=== PATIENT | female | born 1925 | race Native Hawaiian/Other Pacific Islander ===

== ENCOUNTER 2017-01-16 12:56 | Emergency (ER) | payer MEDICARE ==
[2017-01-16 13:06] VITALS: O2SAT 97
--- NOTE | 2017-01-16 13:32 | ERPHSYRPT ---
- History of Present Illness Time Seen by Provider: 01/16/17 13:24 Historian: patient Exam Limitations: no limitations (out of a chest pain) Patient Subjective Stated Complaint: PT REPORTS INTERMITTANT CHEST PAIN- SHOULDER PAIN-BEGINNING SUNDAY-STATES THAT THE PAIN COMES ET GOES ET THAT IT MOVES AROUND BOTH SHOULDERS ET THROUGH HER CHEST-DENIES SOB-DENIES COUGH-DENIES RECENT ILLNESS-STATES THAT SHE HAS THESE EPISODES ABOUT ONCE A YEAR Triage Nursing Assessment: PT PALE WARM ET [id number] NONLAOBRED-RIGHT RADIAL PULSE REGULAR ET STRONG-CAP REFILL 3 SECONDS-SPEAKING IN COMPLETE SENTENCES WITH EASE- Physician History: left wrist pain for one week. Timing/Duration: week(s) (1) Activities at Onset: none Quality: sharpness Severity of Pain-Max: moderate Severity of Pain-Current: moderate Modifying Factors: Improves With: nothing Associated Symptoms: denies symptoms Prior Chest Pain/Cardiac Workup: no prior chest pain Nitro Today/Relief: no nitro taken today Aspirin Treatment Today: no aspirin today Allergies/Adverse Reactions: cortisone Allergy (Verified 02/02/17 12:49) Home Medications: Aspirin 81 gm Chew [Baby Aspirin 81 mg Chew] 81 mg PO DAILY 01/16/17 [ History] Carvedilol 6.25 mg [Coreg 6.25 MG] 6.25 mg PO BID 01/16/17 [History] Hydrochlorothiazide 25 mg [hydroDIURIL 25 MG] 25 mg PO DAILY 01/16/17 [ History] PANTOPRAZOLE 40 mg Tablet [Protonix 40MG Tablet] 40 mg PO BID 01/16/17 [ History] Amlodipine Besylate 2.5 mg PO UD 02/02/17 [History] Lisinopril [Prinivil] 20 mg PO BID 02/02/17 [History] Hx Tetanus, Diphtheria Vaccination/Date Given: No Hx Influenza Vaccination/Date Given: No Hx Pneumococcal Vaccination/Date Given: No Immunizations Up to Date: Yes - Review of Systems Constitutional: No Fever, No Chills Eyes: No Symptoms Ears, Nose, & Throat: No Symptoms Respiratory: No Cough, No Dyspnea Cardiac: No Chest Pain, No Edema, No Syncope Genitourinary Symptoms: No Dysuria Musculoskeletal: Joint Pain (left wrist) Skin: No Rash Neurological: No Dizziness, No Focal Weakness, No Sensory Changes Psychological: No Symptoms Endocrine: No Symptoms Hematologic/Lymphatic: No Symptoms Immunological/Allergic: No Symptoms All Other Systems: Reviewed and Negative - Past Medical History Pertinent Past Medical History: Yes Cardiac History: Myocardial Infarction ([place]) - Past Surgical History Past Surgical History: Yes Cardiac: Cardiac Catheterization, Cardiac Stent Female Surgical History: Hysterectomy - Social History Smoking Status: Never smoker Exposure to second hand smoke: No Drug Use: none Patient Lives Alone: No - Nursing Vital Signs Nursing Vital Signs: Initial Vital Signs Temperature 99.1 F 01/16/17 12:57 Pulse Rate 96 H 01/16/17 12:57 Respiratory Rate 20 01/16/17 12:57 Blood Pressure 146/70 01/16/17 12:57 O2 Sat by Pulse Oximetry 97 01/16/17 12:57 Pain Scale Pain Intensity 4 - Physical Exam General Appearance: mild distress Eye Exam: PERRL/EOMI, eyes nml inspection Ears, Nose, Throat Exam: normal ENT inspection, moist mucous membranes Neck Exam: normal inspection, non-tender, supple, full range of motion Respiratory Exam: normal breath sounds, lungs clear, No respiratory distress Cardiovascular Exam: regular rate/rhythm, normal heart sounds Gastrointestinal/Abdomen Exam: soft, No tenderness, No mass Pelvic Exam: not done Rectal Exam: not done Back Exam: normal inspection, No CVA tenderness, No vertebral tenderness Extremity Exam: normal range of motion, swelling (left wrist) Neurologic Exam: alert, oriented x 3, cooperative, normal mood/affect, sensation nml, No motor deficits Skin Exam: normal color, warm, dry SpO2 Interpretation: normal SpO2: 97 Oxygen Delivery: Room Air Ordered Tests: Medication Summary Discontinued Medications Generic Name Dose Route Start Last Admin Trade Name Jovan PRN Reason Stop Dose Admin Acetaminophen 975 mg 01/16/17 13:39 01/16/17 13:46 Tylenol 325 Mg PO 01/16/17 13:40 975 mg STAT ONE Administration Acetaminophen Confirm 01/16/17 13:44 Tylenol 325 Mg Administered 01/16/17 13:45 Dose 975 mg .ROUTE .STK-MED ONE Potassium Chloride 20 meq 01/16/17 14:38 01/16/17 14:42 Klor Con 10 Meq PO 01/16/17 14:39 20 meq STAT ONE Administration Potassium Chloride Confirm 01/16/17 14:39 Klor Con 10 Meq Administered 01/16/17 14:40 Dose 20 meq PO .STK-MED ONE Lab/Rad Data: Laboratory Result Diagrams 01/16/17 13:30 01/16/17 13:30 Laboratory Results 01/16/17 01/16/17 01/16/17 Range/Units 13:39 13:30 13:30 WBC (4.0-10.5) K/mm3 RBC (4.1-5.4) M/mm3 Hgb (12.0-16.0) gm/dl Hct (35-47) % MCV (78-100) fl MCH (26-32) pg MCHC (32-36) g/dl RDW (11.5-14.0) % Plt Count (150-450) K/mm3 MPV (6-9.5) fl Gran % (36.0-66.0) % Lymphocytes % (24.0-44.0) % Monocytes % (0.0-12.0) % Eosinophils % (0.00-5.0) % Basophils % (0.0-0.4) % Basophils # (0-0.4) Sodium 141 (136-145) mEq/L Potassium 3.2 L (3.5-5.1) mEq/L Chloride 103 (98-107) mEq/L Carbon Dioxide 27.2 (21-32) mEq/L Anion Gap 14.1 (5-15) MEQ/L BUN 21 H (9-20) mg/dL Creatinine 1.28 (0.55-1.30) mg/dl Estimated GFR 42 ML/MIN Glucose 203 H (70-110) MG/DL Lactic Acid 1.5 (0.4-2.0) Uric Acid 7.8 H (2.6-6.0) mg/dL Calcium 9.2 (8.5-10.1) mg/dL Total Bilirubin 1.20 H (0.2-1.0) mg/dL AST 20 (15-37) U/L ALT 17 (12-78) U/L Alkaline Phosphatase 105 (46-116) U/L Troponin I < 0.017 (0.000-0.056) ng/ml Serum Total Protein 7.6 (6.4-8.2) gm/dL Albumin 3.7 (3.4-5.0) g/dL 01/16/17 Range/Units 13:30 WBC 11.2 H (4.0-10.5) K/mm3 RBC 3.97 L (4.1-5.4) M/mm3 Hgb 10.9 L (12.0-16.0) gm/dl Hct 34.1 L (35-47) % MCV 85.9 (78-100) fl MCH 27.4 (26-32) pg MCHC 32.0 (32-36) g/dl RDW 13.8 (11.5-14.0) % Plt Count 340 (150-450) K/mm3 MPV 11.1 H (6-9.5) fl Gran % 80.7 H (36.0-66.0) % Lymphocytes % 9.5 L (24.0-44.0) % Monocytes % 9.4 (0.0-12.0) % Eosinophils % 0.2 (0.00-5.0) % Basophils % 0.2 (0.0-0.4) % Basophils # 0.02 (0-0.4) Sodium (136-145) mEq/L Potassium (3.5-5.1) mEq/L Chloride (98-107) mEq/L Carbon Dioxide (21-32) mEq/L Anion Gap (5-15) MEQ/L BUN (9-20) mg/dL Creatinine (0.55-1.30) mg/dl Estimated GFR ML/MIN Glucose (70-110) MG/DL Lactic Acid (0.4-2.0) Uric Acid (2.6-6.0) mg/dL Calcium (8.5-10.1) mg/dL Total Bilirubin (0.2-1.0) mg/dL AST (15-37) U/L ALT (12-78) U/L Alkaline Phosphatase (46-116) U/L Troponin I (0.000-0.056) ng/ml Serum Total Protein (6.4-8.2) gm/dL Albumin (3.4-5.0) g/dL - Progress Counseled pt/family regarding: lab results, diagnosis, need for follow-up - Departure Time of Disposition: 14:57 Departure Disposition: Home Clinical Impression: Acute gouty arthritis, Hypokalemia Condition: Stable Critical Care Time: No Referrals: MAKSIM BURRELL [Primary Care Provider] - Additional Instructions: Your laboratory value showed your uric acid level was high at 7.8. Your left wrist pain and swelling is likely due to gout. Your potassium level was also slightly low. You were given potassium 20 mEq in the ER. Take Augmentin 875 twice a day for 10 days. Take Aleve or ibuprofen as needed for pain. Stay well hydrated. Do not eat any red meat until well. Follow-up with your family physician in 2-3 days.
--- NOTE | 2017-01-16 13:38 | ERPHSYRPT ---
- History of Present Illness Time Seen by Provider: 01/16/17 13:33 Source: patient, family Exam Limitations: no limitations Patient Subjective Stated Complaint: PT REPORTS INTERMITTANT CHEST PAIN- SHOULDER PAIN-BEGINNING SUNDAY-STATES THAT THE PAIN COMES ET GOES ET THAT IT MOVES AROUND BOTH SHOULDERS ET THROUGH HER CHEST-DENIES SOB-DENIES COUGH-DENIES RECENT ILLNESS-STATES THAT SHE HAS THESE EPISODES ABOUT ONCE A YEAR Triage Nursing Assessment: PT PALE WARM ET [id number] NONLAOBRED-RIGHT RADIAL PULSE REGULAR ET STRONG-CAP REFILL 3 SECONDS-SPEAKING IN COMPLETE SENTENCES WITH EASE- Physician History: The patient is an 89-year-old female with her daughter complaining of left wrist pain since Sunday. She is somewhat of a poor historian. She states she will get pains in her arms and legs. These pains will last about one week. These pains will occur about once a year. Currently the pain is only in her left wrist. The last time she had these pains it was in her legs and ankles. In the past she hasn't done anything but ride out the problem and it would get better. This time the pain is much worse. Her past medical history is significant for OR, congestive heart failure, hypertension, and GERD. She is right-handed. Occurred: days ago (3) Method of Injury: unknown Quality: constant, sharpness Severity of Pain-Max: severe Severity of Pain-Current: moderate Extremities Pain Location: wrist: left Modifying Factors: Improves With: nothing Associated Symptoms: none, No chest pain, No dyspnea, No short of breath Allergies/Adverse Reactions: No Known Drug Allergies Allergy (Unverified 01/16/17 13:43) Home Medications: Amlodipine/Atorvastatin [Amlodipine-Atorvast 2.5-10 mg] 1 each PO BID 01/16/17 [ History] Aspirin 81 gm Chew [Baby Aspirin 81 mg Chew] 81 mg PO DAILY 01/16/17 [ History] Carvedilol 6.25 mg [Coreg 6.25 MG] 6.25 mg PO BID 01/16/17 [History] Hydrochlorothiazide 25 mg [hydroDIURIL 25 MG] 25 mg PO DAILY 01/16/17 [ History] PANTOPRAZOLE 40 mg Tablet [Protonix 40MG Tablet] 40 mg PO BID 01/16/17 [ History] Hx Tetanus, Diphtheria Vaccination/Date Given: No Hx Influenza Vaccination/Date Given: No Hx Pneumococcal Vaccination/Date Given: No Immunizations Up to Date: Yes - Review of Systems Constitutional: No Fever, No Chills Eyes: No Symptoms Ears, Nose, & Throat: No Symptoms Respiratory: No Cough, No Dyspnea Cardiac: No Chest Pain, No Edema, No Syncope Abdominal/Gastrointestinal: No Abdominal Pain, No Nausea, No Vomiting, No Diarrhea Genitourinary Symptoms: No Symptoms Musculoskeletal: Joint Pain (left wrist) Skin: No Rash Neurological: No Dizziness, No Focal Weakness, No Sensory Changes Psychological: No Symptoms Endocrine: No Symptoms Hematologic/Lymphatic: No Symptoms Immunological/Allergic: No Symptoms All Other Systems: Reviewed and Negative - Past Medical History Pertinent Past Medical History: Yes Cardiac History: Myocardial Infarction ([place]) - Past Surgical History Past Surgical History: Yes Cardiac: Cardiac Catheterization, Cardiac Stent Female Surgical History: Hysterectomy - Social History Smoking Status: Never smoker Exposure to second hand smoke: No Drug Use: none Patient Lives Alone: No - Nursing Vital Signs Nursing Vital Signs: Initial Vital Signs Temperature 99.1 F Temperature Source Oral Pulse Rate [Right Radial] 90 Pulse Rate 72 Respiratory Rate 16 Blood Pressure [Right Arm] 129/66 Pain Intensity 4 - Physical Exam General Appearance: alert Eyes, Ears, Nose, Throat Exam: moist mucous membranes Neck Exam: non-tender, supple Cardiovascular/Respiratory Exam: chest non-tender, normal breath sounds, regular rate/rhythm, no respiratory distress Abdominal Exam: non-tender, No guarding Back Exam: normal inspection, No vertebral tenderness Shoulder Exam: normal inspection Elbow/Forearm Exam: normal inspection Wrist Exam: limited ROM, pain, soft tissue tenderness, swelling (Swelling, erythema, exquisite tenderness to palpation, and limited range of motion due to pain.) Hand Exam: normal inspection Neuro/Tendon Exam: normal sensation, normal motor functions Mental Status Exam: alert, oriented x 3, cooperative Skin Exam: normal color, warm, dry SpO2 Interpretation: normal SpO2: 97 Oxygen Delivery: Room Air Ordered Tests: Active Orders 24 hr Category Date Time Status WRIST (MIN 3 VIEWS) Stat Exams 01/16/17 13:41 Taken CBC W DIFF Stat Lab 01/16/17 13:30 Completed CMP Stat Lab 01/16/17 13:30 Completed Lactic Acid Stat Lab 01/16/17 13:39 Completed TROPONIN Stat Lab 01/16/17 13:30 Completed Uric Acid Stat Lab 01/16/17 13:30 Completed Medication Summary Discontinued Medications Generic Name Dose Route Start Last Admin Trade Name Jovan PRN Reason Stop Dose Admin Acetaminophen 975 mg 01/16/17 13:39 01/16/17 13:46 Tylenol 325 Mg PO 01/16/17 13:40 975 mg STAT ONE Administration Acetaminophen Confirm 01/16/17 13:44 Tylenol 325 Mg Administered 01/16/17 13:45 Dose 975 mg .ROUTE .STK-MED ONE Potassium Chloride 20 meq 01/16/17 14:38 Klor Con 10 Meq PO 01/16/17 14:39 STAT ONE Lab/Rad Data: Laboratory Result Diagrams 01/16/17 13:30 01/16/17 13:30 Laboratory Results 01/16/17 01/16/17 01/16/17 Range/Units 13:39 13:30 13:30 WBC (4.0-10.5) K/mm3 RBC (4.1-5.4) M/mm3 Hgb (12.0-16.0) gm/dl Hct (35-47) % MCV (78-100) fl MCH (26-32) pg MCHC (32-36) g/dl RDW (11.5-14.0) % Plt Count (150-450) K/mm3 MPV (6-9.5) fl Gran % (36.0-66.0) % Lymphocytes % (24.0-44.0) % Monocytes % (0.0-12.0) % Eosinophils % (0.00-5.0) % Basophils % (0.0-0.4) % Basophils # (0-0.4) Sodium 141 (136-145) mEq/L Potassium 3.2 L (3.5-5.1) mEq/L Chloride 103 (98-107) mEq/L Carbon Dioxide 27.2 (21-32) mEq/L Anion Gap 14.1 (5-15) MEQ/L BUN 21 H (9-20) mg/dL Creatinine 1.28 (0.55-1.30) mg/dl Estimated GFR 42 ML/MIN Glucose 203 H (70-110) MG/DL Lactic Acid 1.5 (0.4-2.0) Uric Acid 7.8 H (2.6-6.0) mg/dL Calcium 9.2 (8.5-10.1) mg/dL Total Bilirubin 1.20 H (0.2-1.0) mg/dL AST 20 (15-37) U/L ALT 17 (12-78) U/L Alkaline Phosphatase 105 (46-116) U/L Troponin I < 0.017 (0.000-0.056) ng/ml Serum Total Protein 7.6 (6.4-8.2) gm/dL Albumin 3.7 (3.4-5.0) g/dL 01/16/17 Range/Units 13:30 WBC 11.2 H (4.0-10.5) K/mm3 RBC 3.97 L (4.1-5.4) M/mm3 Hgb 10.9 L (12.0-16.0) gm/dl Hct 34.1 L (35-47) % MCV 85.9 (78-100) fl MCH 27.4 (26-32) pg MCHC 32.0 (32-36) g/dl RDW 13.8 (11.5-14.0) % Plt Count 340 (150-450) K/mm3 MPV 11.1 H (6-9.5) fl Gran % 80.7 H (36.0-66.0) % Lymphocytes % 9.5 L (24.0-44.0) % Monocytes % 9.4 (0.0-12.0) % Eosinophils % 0.2 (0.00-5.0) % Basophils % 0.2 (0.0-0.4) % Basophils # 0.02 (0-0.4) Sodium (136-145) mEq/L Potassium (3.5-5.1) mEq/L Chloride (98-107) mEq/L Carbon Dioxide (21-32) mEq/L Anion Gap (5-15) MEQ/L BUN (9-20) mg/dL Creatinine (0.55-1.30) mg/dl Estimated GFR ML/MIN Glucose (70-110) MG/DL Lactic Acid (0.4-2.0) Uric Acid (2.6-6.0) mg/dL Calcium (8.5-10.1) mg/dL Total Bilirubin (0.2-1.0) mg/dL AST (15-37) U/L ALT (12-78) U/L Alkaline Phosphatase (46-116) U/L Troponin I (0.000-0.056) ng/ml Serum Total Protein (6.4-8.2) gm/dL Albumin (3.4-5.0) g/dL - Departure Time of Disposition: 14:40 Departure Disposition: Home Clinical Impression: Acute gouty arthritis, Hypokalemia Condition: Stable Critical Care Time: No Additional Instructions: Your laboratory value showed your uric acid level was high at 7.8. Your left wrist pain and swelling is likely due to gout. Your potassium level was also slightly low. You were given potassium 20 mEq in the ER. Take Augmentin 875 twice a day for 10 days. Take Aleve or ibuprofen as needed for pain. Stay well hydrated. Do not eat any red meat until well. Follow-up with your family physician in 2-3 days. Prescriptions: Amoxicillin/Potassium Clav [Augmentin 875-125 Tablet] 875 mg PO BID #20 tablet
[2017-01-16] MEDS ORDERED: TYLENOL 325 MG PO ONE (13:39)
[2017-01-16] MEDS ORDERED: TYLENOL 325 MG ONE (13:44)
[2017-01-16 13:55] LABS: BASOPHIL % 0.2 % (0.0-0.4); Eosinophil % 0.2 % (0.00-5.0); Granulocytes % 80.7 % (36.0-66.0); Lymphocytes % 9.5 % (24.0-44.0); Mean Cell Volume 85.9 fl (78-100); Mean Platelet Volume 11.1 fl (6-9.5); Monocytes % 9.4 % (0.0-12.0); Platelet Count 340 K/mm3 (150-450); Red Blood Count 3.97 M/mm3 (4.1-5.4); Red Cell Distribution Width 13.8 % (11.5-14.0); White Blood Count 11.2 K/mm3 (4.0-10.5)
[2017-01-16 13:58] LABS: Mean Corpuscular Hemoglobin 27.4 pg (26-32)
[2017-01-16 14:03] LABS: ALBUMIN 3.7 g/dL (3.4-5.0); ALKALINE PHOSPHATASE 105 U/L (46-116); ANION GAP 14.1 MEQ/L (5-15); BLOOD UREA NITROGEN 21 mg/dL (9-20); CHLORIDE 103 mEq/L (98-107); Carbon Dioxide 27.2 mEq/L (21-32); Glucose 203 MG/DL (70-110); Potassium 3.2 mEq/L (3.5-5.1); SGOT/AST 20 U/L (15-37); SODIUM 141 mEq/L (136-145); Total Protein 7.6 gm/dL (6.4-8.2)
[2017-01-16 14:14] LABS: TROPONIN < 0.017 ng/ml (0.000-0.056)
[2017-01-16 14:21] LABS: SGPT/ALT 17 U/L (12-78)
[2017-01-16] MEDS ORDERED: Klor Con 10 MEQ PO ONE ×2 (14:38→14:39)
--- NOTE | 2017-01-16 14:51 | XRAY ---
Exam: 3 view left wrist series from 01/16/2017. Comparison: None. Indication: No known injury, pain and swelling within left wrist. Findings: AP, oblique, and lateral radiographs of the left wrist were obtained. I see no acute fracture or dislocation. The radiocarpal joint and carpal joint spaces appear grossly unremarkable. The carpal bones appear intact. Surprisingly little degenerative change is seen at the carpal-first metacarpal joint space despite the patient's age of almost 89 years. Some mild atherosclerotic vascular calcification is seen along the volar aspect of the distal left forearm and wrist. I also note mild to moderate generalized soft tissue swelling about the distal left forearm and wrist. No radiopaque soft tissue foreign body is seen. Impression: 1. I see no fracture or other significant bone or joint abnormality about the left wrist. 2. Mild atherosclerotic vascular calcification is seen along the volar aspect of the distal left forearm and wrist. 3. There is mild to moderate generalized soft tissue swelling about the distal left forearm and wrist. Correlate clinically. No radiopaque soft tissue foreign body is seen.
[2017-01-16 14:54] VITALS: BP 127/58; PULSE 68
== END 2017-01-16 14:57 | disposition home or self-care (01) ==
LOC: ED 12:56
DX: M10.9 Gout, unspecified (principal); E87.6 Hypokalemia; R07.89 Other chest pain; M25.512 Pain in left shoulder; M25.511 Pain in right shoulder; Z79.899 Other long term (current) drug therapy; M25.532 Pain in left wrist; I25.2 Old myocardial infarction
CPT/HCPCS: 36000; 36415; 73110; 80053; 83605; 84484; 84550; 85025; 93005; 93041; 99284; A9270-GY

== ENCOUNTER 2017-02-02 12:33 | Emergency (ER) | payer MEDICARE ==
[2017-02-02 12:49] VITALS: O2SAT 93
--- NOTE | 2017-02-02 12:53 | ERPHSYRPT ---
- History of Present Illness Time Seen by Provider: 02/02/17 12:49 Historian: patient Exam Limitations: no limitations Patient Subjective Stated Complaint: diarrhea Triage Nursing Assessment: diarrhea 5+ times daily for past 4 days. states diarreha started after having tomatoes 4 days ago. deneis pain or n/v. abd soft , nontender. states 'has this for years but 4 days is a long time' Physician History: 89 y/o female with history of having diarrhea comes to the ER after having a bout of diarrhea for the past 4 days. Pt says she has about 4-5 episodes of diarrhea, liquid looking stool with no blood. Pt admits to bloating and early satiety. Pt does not have any abdominal pain, nausea, vomiting, bloody stools, or urinary symptoms. Pt did not take anything for the diarrhea but has taken imodium in the past. Timing/Duration: day(s) (4) Activities at Onset: none Associated Symptoms: denies symptoms Previous symptoms: same symptoms as today Allergies/Adverse Reactions: cortisone Allergy (Verified 02/02/17 12:49) Home Medications: Aspirin 81 gm Chew [Baby Aspirin 81 mg Chew] 81 mg PO DAILY 01/16/17 [ History] Carvedilol 6.25 mg [Coreg 6.25 MG] 6.25 mg PO BID 01/16/17 [History] Hydrochlorothiazide 25 mg [hydroDIURIL 25 MG] 25 mg PO DAILY 01/16/17 [ History] PANTOPRAZOLE 40 mg Tablet [Protonix 40MG Tablet] 40 mg PO BID 01/16/17 [ History] Amlodipine Besylate 2.5 mg PO UD 02/02/17 [History] Lisinopril [Prinivil] 20 mg PO BID 02/02/17 [History] Hx Tetanus, Diphtheria Vaccination/Date Given: Yes Hx Influenza Vaccination/Date Given: No Hx Pneumococcal Vaccination/Date Given: No Immunizations Up to Date: Yes - Review of Systems Constitutional: No Fever, No Chills Eyes: No Symptoms Ears, Nose, & Throat: No Symptoms Respiratory: No Cough, No Dyspnea Cardiac: No Chest Pain, No Edema, No Syncope Abdominal/Gastrointestinal: Diarrhea, Appetite Changes, No Abdominal Pain, No Nausea, No Vomiting Genitourinary Symptoms: No Dysuria Musculoskeletal: No Back Pain, No Neck Pain Skin: No Rash Neurological: No Dizziness, No Focal Weakness, No Sensory Changes Psychological: No Symptoms Endocrine: No Symptoms All Other Systems: Reviewed and Negative - Past Medical History Pertinent Past Medical History: Yes Cardiac History: Hypertension, Myocardial Infarction ([place]) - Past Surgical History Past Surgical History: Yes Cardiac: Cardiac Catheterization, Cardiac Stent Female Surgical History: Hysterectomy - Social History Smoking Status: Never smoker Exposure to second hand smoke: No Drug Use: none Patient Lives Alone: No - Nursing Vital Signs Nursing Vital Signs: Initial Vital Signs Temperature 98.8 F 02/02/17 12:39 Pulse Rate 96 H 02/02/17 12:39 Respiratory Rate 18 02/02/17 12:39 Blood Pressure 148/72 02/02/17 12:39 O2 Sat by Pulse Oximetry 93 L 02/02/17 12:39 Pain Scale Pain Intensity 0 - Physical Exam General Appearance: no apparent distress, alert Eye Exam: PERRL/EOMI, eyes nml inspection Ears, Nose, Throat Exam: normal ENT inspection, pharynx normal, moist mucous membranes Neck Exam: normal inspection, non-tender, supple, full range of motion Respiratory Exam: normal breath sounds, lungs clear, No respiratory distress Cardiovascular Exam: regular rate/rhythm, normal heart sounds Gastrointestinal/Abdomen Exam: soft, No normal bowel sounds (hyperactive bowel sounds), No tenderness, No distention, No mass Back Exam: normal inspection, normal range of motion, No CVA tenderness, No vertebral tenderness Extremity Exam: normal inspection, normal range of motion, pelvis stable Neurologic Exam: alert, oriented x 3, cooperative, normal mood/affect, nml cerebellar function, sensation nml, No motor deficits Skin Exam: normal color, warm, dry SpO2: 93 Oxygen Delivery: Room Air Ordered Tests: Active Orders 24 hr Category Date Time Status ABDOMEN 2 VIEW Stat Exams 02/02/17 12:48 Completed Medication Summary Discontinued Medications Generic Name Dose Route Start Last Admin Trade Name Freq PRN Reason Stop Dose Admin Loperamide HCl 4 mg 02/02/17 13:27 Imodium 2 Mg PO 02/02/17 13:28 STAT ONE - Progress Progress: improved Progress Note: 02/02/17 13:32 Pt has had no episodes of diarrhea since arriving to the ER. The abdominal x ray does not show any obstruction or constipation. Pt will be giving a loading dose of imodium and will be sent home with a script for imodium for diarrhea. - Departure Time of Disposition: 13:34 Departure Disposition: Home Clinical Impression: Diarrhea Qualifiers: Diarrhea type: unspecified type Qualified Code(s): R19.7 - Diarrhea, unspecified Condition: Stable Critical Care Time: No Referrals: SARAH EATON [Primary Care Provider] - Instructions: Diarrhea and Traveler's Diarrhea -- Adult Additional Instructions: Return to the ER if you should have worsening diarrhea, abdominal pain, nausea or vomiting. Prescriptions: Loperamide HCl 2 mg [Imodium 2 mg] 2 mg PO Q4-6HPRN PRN #20 capsule PRN Reason: Diarrhea
[2017-02-02] MEDS ORDERED: IMODIUM 2 MG PO ONE (13:27)
--- NOTE | 2017-02-02 13:27 | XRAY ---
Indication: Diarrhea and abdominal pain. Comparison: None 2 views of the abdomen demonstrates mild nonspecific air distended bowel loops without focal bowel dilatation, air-fluid leveling, or free air. Solid organs obscured. Osseous structures intact with mild degenerative changes throughout the spine. Moderate scattered vascular calcifications. Lung bases clear. Impression: Nonacute nonobstructed abdomen.
[2017-02-02 13:50] VITALS: BP 130/75; PULSE 75
== END 2017-02-02 13:51 | disposition home or self-care (01) ==
LOC: ED 12:33
DX: R19.7 Diarrhea, unspecified (principal); R14.0 Abdominal distension (gaseous); I10 Essential (primary) hypertension; I25.2 Old myocardial infarction
CPT/HCPCS: 74020; 99283; A9270-GY